=== PATIENT | male | born 1970 | race Two or more races ===

== ENCOUNTER 2018-04-09 14:31 | Emergency (ER) | payer MEDICAID, OTHER ==
[~2018-04-09] VITALS: Ht 175.3 cm; Wt 77.1 kg
[~2018-04-09 14:31] MED LIST: ALPR2TAB2 PO; HYDR8TAB2 PO; QUET400T PO
--- NOTE | 2018-04-09 14:45 | NUR ---
PLACED PT ON 3-LEAD. [employer] AT BEDSIDE
--- NOTE | 2018-04-09 14:46 | NUR ---
[id number], FOUND IN A BATHROOM PASSED OUT, HEROIN OVERDOSE. NARCAN 2MG IVP GIVEN. PT IS [employer]. VSS. NO COMPLAINTS AT THIS TIME. SCABBING ON FACE BUT SKIN INTACT. NO ACUTE DISTRESS NOTED. READY FOR EVAL.
--- NOTE | 2018-04-09 16:03 | NUR ---
PT SNORING IN BED, EASILY AROUSED. VSS. WILL CONT TO MONITOR.
--- NOTE | 2018-04-09 17:15 | NUR ---
Patient discharged to home in stable condition. Written and verbal after care instructions given. Patient verbalizes understanding of instruction.
[2018-04-09 17:16] VITALS: BP 123/68
== END 2018-04-09 17:18 | disposition home or self-care (01) ==
LOC: ER 14:33
DX: T40.691A Poisoning by other narcotics, accidental (unintentional), initial encounter (principal); F31.9 Bipolar disorder, unspecified; F10.10 Alcohol abuse, uncomplicated; F17.200 Nicotine dependence, unspecified, uncomplicated; Y90.9 Presence of alcohol in blood, level not specified; Z86.19 Personal history of other infectious and parasitic diseases; Y92.002 Bathroom of unspecified non-institutional (private) residence as the place of occurrence of the external cause